=== PATIENT | female | born 1985 | race Caucasian/White ===

== ENCOUNTER 2016-07-29 10:00 | Outpatient (RCR) | payer OTHER ==
[~2016-07-29 10:00] MED LIST: HYDR1TAB PO
== END 2016-10-27 | disposition home or self-care (01) ==
LOC: CARD 10:00
PROVIDERS: ATTEND Nurse Practitioner Adult Health
DX: R00.2 Palpitations (principal)
CPT/HCPCS: 93225; 93226

== ENCOUNTER → 2016-09-21 | Outpatient (CLI) | payer OTHER ==
--- OUTSIDE RECORDS SUMMARY | 2016-09-21 11:42 | XMS REPORT | Continuity of Care Document ---
Author Author [facility] Organization [facility] Address Unknown Phone Unavailable Allergies Active Description Code Type Severity Reaction Onset Reported/Identified Relationship to Patient Clinical Status Yes No Known Drug Allergies [id number] Drug Allergy Unknown N/ A 05/24/2011 Medications Problems Date Dx Coded Attending Type Code Diagnosis Diagnosed By 06/16/1599 JACOB CARREON MD Ot L22 DIAPER DERMATITIS 02/04/2016 QUICK, JEREMIAH W FOUNDRY WORKER APPRENTICE Ot N64.4 MASTODYNIA 02/04/2016 QUICK, JEREMIAH W FOUNDRY WORKER APPRENTICE Ot Z80.3 FAMILY HISTORY OF MALIGNANT NEOPLASM OF 03/05/2016 QUICK, JEREMIAH W FOUNDRY WORKER APPRENTICE Ot N64.4 MASTODYNIA 03/05/2016 QUICK, JEREMIAH W FOUNDRY WORKER APPRENTICE Ot Z80.3 FAMILY HISTORY OF MALIGNANT NEOPLASM OF 06/04/2016 QUICK, JEREMIAH W FOUNDRY WORKER APPRENTICE Ot N64.4 MASTODYNIA 06/04/2016 QUICK, JEREMIAH W FOUNDRY WORKER APPRENTICE Ot Z80.3 FAMILY HISTORY OF MALIGNANT NEOPLASM OF 06/18/2016 JACOB CARREON MD Ot L22 DIAPER DERMATITIS 07/29/2016 QUICK, JEREMIAH W FOUNDRY WORKER APPRENTICE Ot N64.4 MASTODYNIA 07/29/2016 QUICK, JEREMIAH W FOUNDRY WORKER APPRENTICE Ot Z80.3 FAMILY HISTORY OF MALIGNANT NEOPLASM OF 07/29/2016 QUICK, JEREMIAH W FOUNDRY WORKER APPRENTICE Ot N64.4 MASTODYNIA 07/29/2016 QUICK, JEREMIAH W FOUNDRY WORKER APPRENTICE Ot Z80.3 FAMILY HISTORY OF MALIGNANT NEOPLASM OF 07/29/2016 QUICK, JEREMIAH W FOUNDRY WORKER APPRENTICE Ot N64.4 MASTODYNIA 07/29/2016 QUICK, JEREMIAH W FOUNDRY WORKER APPRENTICE Ot Z80.3 FAMILY HISTORY OF MALIGNANT NEOPLASM OF 07/30/2016 CARIDAD FALCON FOUNDRY WORKER APPRENTICE Ot R00.2 PALPITATIONS 09/09/2016 CARIDAD FALCON FOUNDRY WORKER APPRENTICE Ot R00.2 PALPITATIONS Procedures Results Encounters ACCT No. Visit Date/Time Discharge Status Pt. Type Provider Facility Loc./Unit Complaint [id number] 06/18/2016 08:46:00 2015 16:00:00 DIS Outpatient JACOB CARREON MD [facility] WOUNDCARE [id number] 01/24/2014 12:29:00 2013 23:59:59 CLS Outpatient [id number] 07/29/2016 10:00:00 ACT Outpatient CARIDAD FALCON [facility] CARD HEART PALPITATIONS [id number] 02/03/2016 09:24:00 ACT Outpatient JEREMIAH PIZARRO [facility] RAD PAIN OF LEFT BREAST,FH MALIGNANT NEOPLASM OF BREAS
--- NOTE | 2016-09-22 08:13 | ECHOCARDIOGRAPHY REPORT ---
PROCEDURE PHYSICIAN: SAIDA CORREA DATE OF PROCEDURE: 09/21/2016 TWO DIMENSIONAL ECHOCARDIOGRAM REPORT PRIMARY PHYSICIAN: OTHER PHYSICIAN: REFERRING PHYSICIAN: Renu Ortiz [facility], Dr. Vangie Mcfarland ORDERING PHYSICIAN: INDICATION FOR THE PROCEDURE: MEASUREMENTS DERIVED VALUES LV DIAMETER (LAX) NORMALS NORMALS Diastolic 3.3 (3.6-5.2) Eject. Fract. 60% (60%+/-6%) Systolic (2.3-3.9) Diastolic Vol. % Shortening (0.22-0.42) Systolic Vol. Aortic Root IVS THICKNESS Diastolic 1 (0.6-1.1) LVPW THICKNESS Diastolic 1 (0.6-1.1) LA DIAMETER Systolic 2.8 (2.1-3.7) FINDINGS: 1. Technical quality is good. 2. The left ventricle is normal in size with normal contractility. Systolic function appeared to be normal. Estimated ejection fraction 60%. 3. The left atrium is normal in size. No clot or thrombus were seen within the left atrium. 4. The right atrium and right ventricle are normal in size. No clot or thrombus were seen within the right side. 5. Mitral valve is normal in morphology with mild mitral regurgitation noted by color Doppler flow. No mitral valve prolapse. No mitral valve stenosis. 6. Aortic valve is trileaflet with normal opening and closing pattern. No significant aortic stenosis or regurgitation was seen. 7. Tricuspid valve is normal in morphology with mild tricuspid regurgitation noted by color Doppler flow. Doppler across tricuspid valve estimated pulmonary artery pressure of 15+ right atrial pressure. 8. Pulmonic valve is functioning normally. 9. No pericardial effusion. IN CONCLUSION: 1. Normal left ventricular size and systolic function. Estimated ejection fraction 60%. 2. Mild mitral and tricuspid regurgitation. 3. Estimated pulmonary artery pressure of 20 to 25 mmHg. Job ID: [id number] Dictated Date: 09/21/2016 15:54:03 Editing Clerk Date: 09/22/2016 08:09:52 / zeus
== END ==
LOC: CARD 11:39
PROVIDERS: ATTEND Internal Medicine Cardiovascular Disease
DX: G43.909 Migraine, unspecified, not intractable, without status migrainosus (principal); R00.2 Palpitations; Z72.0 Tobacco use
CPT/HCPCS: 93306

== ENCOUNTER → 2016-09-29 | Outpatient (CLI) | payer OTHER ==
--- OUTSIDE RECORDS SUMMARY | 2016-09-29 13:48 | XMS REPORT | Continuity of Care Document ---
Author Author [facility] Organization [facility] Address Unknown Phone Unavailable Allergies Active Description Code Type Severity Reaction Onset Reported/Identified Relationship to Patient Clinical Status Yes No Known Drug Allergies [id number] Drug Allergy Unknown N/ A 05/24/2011 Medications Problems Date Dx Coded Attending Type Code Diagnosis Diagnosed By 06/16/1599 JACOB CARREON MD Ot L22 DIAPER DERMATITIS 02/04/2016 QUICK, JEREMIAH W ACQUISITION EDITOR Ot N64.4 MASTODYNIA 02/04/2016 QUICK, JEREMIAH W ACQUISITION EDITOR Ot Z80.3 FAMILY HISTORY OF MALIGNANT NEOPLASM OF 03/05/2016 QUICK, JEREMIAH W ACQUISITION EDITOR Ot N64.4 MASTODYNIA 03/05/2016 QUICK, JEREMIAH W ACQUISITION EDITOR Ot Z80.3 FAMILY HISTORY OF MALIGNANT NEOPLASM OF 06/04/2016 QUICK, JEREMIAH W ACQUISITION EDITOR Ot N64.4 MASTODYNIA 06/04/2016 QUICK, JEREMIAH W ACQUISITION EDITOR Ot Z80.3 FAMILY HISTORY OF MALIGNANT NEOPLASM OF 06/18/2016 JACOB CARREON MD Ot L22 DIAPER DERMATITIS 07/29/2016 QUICK, JEREMIAH W ACQUISITION EDITOR Ot N64.4 MASTODYNIA 07/29/2016 QUICK, JEREMIAH W ACQUISITION EDITOR Ot Z80.3 FAMILY HISTORY OF MALIGNANT NEOPLASM OF 07/29/2016 QUICK, JEREMIAH W ACQUISITION EDITOR Ot N64.4 MASTODYNIA 07/29/2016 QUICK, JEREMIAH W ACQUISITION EDITOR Ot Z80.3 FAMILY HISTORY OF MALIGNANT NEOPLASM OF 07/29/2016 QUICK, JEREMIAH W ACQUISITION EDITOR Ot N64.4 MASTODYNIA 07/29/2016 QUICK, JEREMIAH W ACQUISITION EDITOR Ot Z80.3 FAMILY HISTORY OF MALIGNANT NEOPLASM OF 07/30/2016 CARIDAD FALCON ACQUISITION EDITOR Ot R00.2 PALPITATIONS 09/09/2016 CARIDAD FALCON ACQUISITION EDITOR Ot R00.2 PALPITATIONS 09/22/2016 MADELINE DURAN, SAIDA Newman Ot G43.909 MIGRAINE, UNSP, NOT INTRACTABLE, WITHOUT 09/22/2016 SAIDA CORREA MD Ot R00.2 PALPITATIONS 09/22/2016 SAIDA CORREA MD Ot Z72.0 TOBACCO USE 09/23/2016 SAIDA CORREA MD Ot G43.909 MIGRAINE, UNSP, NOT INTRACTABLE, WITHOUT 09/23/2016 SAIDA CORREA MD Ot R00.2 PALPITATIONS 09/23/2016 SAIDA CORREA MD Ot Z72.0 TOBACCO USE 09/23/2016 QUICKJEREMIAH ACQUISITION EDITOR Ot N64.4 MASTODYNIA 09/23/2016 QUICKJEREMIAH ACQUISITION EDITOR Ot Z80.3 FAMILY HISTORY OF MALIGNANT NEOPLASM OF 09/23/2016 CARIDAD FALCON Ot R00.2 PALPITATIONS 09/23/2016 SAIDA CORREA MD Ot G43.909 MIGRAINE, UNSP, NOT INTRACTABLE, WITHOUT 09/23/2016 SAIDA CORREA MD Ot R00.2 PALPITATIONS 09/23/2016 SAIDA CORREA MD Ot Z72.0 TOBACCO USE 09/29/2016 QUICKJEREMIAH ACQUISITION EDITOR Ot N64.4 MASTODYNIA 09/29/2016 QUICKJEREMIAH ACQUISITION EDITOR Ot Z80.3 FAMILY HISTORY OF MALIGNANT NEOPLASM OF 09/29/2016 CARIDAD FALCON Ot R00.2 PALPITATIONS 09/29/2016 SAIDA CORREA MD Ot G43.909 MIGRAINE, UNSP, NOT INTRACTABLE, WITHOUT 09/29/2016 SAIDA CORREA MD Ot R00.2 PALPITATIONS 09/29/2016 SAIDA CORREA MD Ot Z72.0 TOBACCO USE Procedures Results Encounters ACCT No. Visit Date/Time Discharge Status Pt. Type Provider Facility Loc./Unit Complaint [id number] 06/18/2016 08:46:00 2015 16:00:00 DIS Outpatient JACOB CARREON MD [facility] WOUNDCARE [id number] 01/24/2014 12:29:00 2013 23:59:59 CLS Outpatient [id number] 09/29/2016 13:45:00 ACT Outpatient MAGGI REID [facility] CARD PALPITATIONS [id number] 09/21/2016 11:39:00 ACT Outpatient MADELINE DURAN, SAIDA Newman [facility] CARD PALPITATIONS [id number] 07/29/2016 10:00:00 ACT Outpatient CARIDAD FALCON [facility] CARD HEART PALPITATIONS [id number] 02/03/2016 09:24:00 ACT Outpatient JEREMIAH PIZARRO [facility] RAD PAIN OF LEFT BREAST,FH MALIGNANT NEOPLASM OF BREAS
== END ==
LOC: CARD 13:45
PROVIDERS: ATTEND Physician Assistant
DX: R00.2 Palpitations (principal); G43.909 Migraine, unspecified, not intractable, without status migrainosus; Z72.0 Tobacco use; Z04.1 Encounter for examination and observation following transport accident
CPT/HCPCS: 93017

== ENCOUNTER → 2018-02-20 | Outpatient (CLI) | payer OTHER ==
[~2018-02-20] VITALS: Ht 160 cm; Wt 71.7 kg
[~2018-02-20] MED LIST changes: +CATHETER FLUSH 10 ML SYR IV PRN
[2018-02-20 09:05] VITALS: BP 93/64
--- NOTE | 2018-02-20 14:18 | STRESS TEST ---
DATE OF SERVICE: 02/20/2018 EXERCISE MYOVIEW STRESS REPORT REFERRING PHYSICIAN: Dr. Vangie Mcfarland, [facility]. FINDINGS: Baseline heart rate is 71. Baseline blood pressure is 93/64. Baseline EKG is sinus rhythm with no ischemic changes. SUMMARY: The patient was injected with 10.1 mCi of technetium-99 Myoview and the resting images were obtained. Then, the patient started exercising with a baseline heart rate, blood pressure and EKG as mentioned above, was able to exercise for a total of 7 minutes 25 seconds on standard Chin protocol, achieving maximum heart rate of 164, which is 88% of maximum expected heart rate. With peak exercise level, blood pressure was 138/82. EKG was showing no significant ischemia with no changes. During recovery, heart rate and blood pressure returned to baseline. EKG returned to baseline. The resting and stress images were reviewed and compared in the short axis, horizontal long axis and vertical long axis views. Review of the images showed good radiotracer uptake with no significant ischemia or infarction. SSS is 0. TID value 1.13. On the gated images, the left ventricle appeared to be normal size with normal contractility and calculated ejection fraction is 66%. CONCLUSION: 1. Good exercise tolerance, a total of 7 minutes 25 seconds on standard Chin protocol, total of 8.9 METS achieving 88% of maximum expected heart rate. 2. Appropriate heart rate and blood pressure response to exercise returned to baseline during recovery. 3. No ischemia or infarction on SPECT images. 4. Normal left ventricular size with normal contractility, calculated ejection fraction 66%. Job ID: [id number] DocumentID: [id number] Dictated Date: 02/20/2018 12:46:00 Car Unloader Date: 02/20/2018 14:17:24 Dictated By: SAIDA CORREA MD
== END ==
LOC: CARD 07:21
PROVIDERS: ATTEND Internal Medicine Cardiovascular Disease
DX: R07.9 Chest pain, unspecified (principal); I49.3 Ventricular premature depolarization; R00.2 Palpitations; Z72.0 Tobacco use
CPT/HCPCS: 78452; 93017

== ENCOUNTER → 2018-05-19 | Outpatient (CLI) | payer OTHER ==
[~2018-05-19] MED LIST changes: -CATHETER FLUSH 10 ML SYR IV PRN
--- NOTE | 2018-05-19 17:24 | Diagnostic Imaging Report ---
INDICATION: Pain in the left breast. COMPARISON: Correlation is made with prior mammogram from 02/03/2016. EXAMINATION: Unilateral left 2D and 3D diagnostic mammography was performed with CAD. The current study was also evaluated with a Computer Aided Detection (CAD) system. FINDINGS: Left breast remains heterogeneously dense, limiting the sensitivity of mammography. No mass or suspicious microcalcifications are seen. The left axilla is unremarkable. IMPRESSION: Stable mammogram with no suspicious abnormalities identified. Even so, sonographic interrogation of the left breast at the areas of pain is recommended and will be performed today. ACR BI-RADS Category 0: Incomplete. (Needs additional imaging evaluation). Result letter will be mailed to the patient. Note: At least 10% of breast cancer is not imaged by mammography. Dictated by: Dictated on workstation # [id number]
--- NOTE | 2018-05-19 17:39 | Diagnostic Imaging Report ---
INDICATION: Left breast pain. EXAMINATION: Sonographic interrogation of all four quadrants in the retroareolar region of the left breast was performed. FINDINGS: No sonographic abnormality is seen. No solid or cystic mass is detected. IMPRESSION: No sonographic abnormality is seen. Clinical followup is recommended. ACR BI-RADS Category 1: Negative. Result letter will be mailed to the patient. Note: At least 10% of breast cancer is not imaged by mammography. Dictated by: Dictated on workstation # [id number]
== END ==
LOC: RAD 12:45
PROVIDERS: ATTEND Nurse Practitioner
DX: N64.4 Mastodynia (principal)
CPT/HCPCS: 76641

== ENCOUNTER → 2018-10-03 | Outpatient (CLI) | payer OTHER ==
--- NOTE | 2018-10-03 16:10 | Diagnostic Imaging Report ---
PROCEDURE: US carotid duplex, bilateral. TECHNIQUE: Multiple real-time grayscale images were obtained over the carotid arteries in various projections, bilaterally. Additional spectral analysis and color Doppler duplex images were also obtained. INDICATION: Pulsatile tinnitus. FINDINGS: Grayscale images demonstrate no significant carotid plaque. There are no focally elevated velocities within either common carotid artery or internal card artery. ICA/CCA ratio on the right is 0.9 and on left is 1.0. There is antegrade flow in both vertebral arteries. IMPRESSION: Normal bilateral carotid duplex. Parameters based on the consensus panel Churhc-Scale and Doppler ultrasound criteria published May 2003, Radiology, Volume 229. DOPPLER (peak systolic velocity M/S Right Left CCA 1.16 1.22 ICA Proximal .94 1.23 ICA Mid 1.01 1.20 ICA Distal .78 .95 RATIO .9 1.0 ECA .94 .98 VERT .66 .96 Dictated by: Dictated on workstation # [id number]
--- NOTE | 2018-10-03 16:16 | Diagnostic Imaging Report ---
PROCEDURE: MR angiography of the brain without the use of contrast. TECHNIQUE: 3D [id number] MR angiography of the head was performed. A source data was reformatted into rotating MIP projections. INDICATION: Postop tinnitus for one year. FINDINGS: There is flow in the distal internal carotid arteries as well as the anterior and middle cerebral arteries. There is flow in the distal vertebral arteries as well as the basilar and bilateral posterior cerebral arteries. No vascular occlusion is seen. No aneurysm, stenosis, or vascular malformation is identified. IMPRESSION: Unremarkable MRA of the brain. Dictated by: Dictated on workstation # [id number]
== END ==
LOC: RAD 14:18
PROVIDERS: ATTEND Otolaryngology Otolaryngology/Facial Plastic Surgery
DX: H93.A1 Pulsatile tinnitus, right ear (principal); Z98.890 Other specified postprocedural states
CPT/HCPCS: 70544; 93880